=== PATIENT | female | born 1965 | race African-American/Black ===

== ENCOUNTER 2016-10-17 13:50 | Emergency (ER) | payer SELFPAY ==
[2016-10-17] MEDS ORDERED: Ketorolac 30 MG/ML SDV IM ONE (14:50)
--- NOTE | 2016-10-17 15:52 | EDM.PDOC ---
ED HPI GENERAL MEDICAL PROBLEM - General Chief Complaint: Back Pain or Injury Stated Complaint: BACK PAIN Time Seen by Provider: 10/17/16 14:40 Source of Information: Reports: Patient History Limitations: Reports: Language Barrier, Other (Daughter interprets as patient speaks Peruvian primarily. ) - History of Present Illness INITIAL COMMENTS - FREE TEXT/NARRATIVE: HISTORY AND PHYSICAL: History of present illness: [Patient comes to emergency room complaining of mid low back pain for the past 2 days. She has a history of low back pain that comes and goes. First episode of back pain occurred in 2012 and resolved completely. She had an episode of low back pain approximately 4 months ago which also resolved completely. She stated that the pain came on slowly 2 days ago, which she attributes to some stretching exercises she did then. She complains of pain and tightness to her low back with any movement. She feels most comfortable when she is perfectly still. She has been able to sleep well in spite of the pain. Pain is to both sides of her back equally. Denies radiation down her lower legs or upper back. She denies urinary frequency and dysuria. She's had no episodes of bowel or bladder incontinence or changes from her normal habits. Patient recently moved to the area from [place]. Peruvian is her primary language and daughter serves as park interpreter. Has a history of acid reflux and a questionable history of stomach ulcers for which she does not take any medication. She has been able to take ibuprofen in the past without difficulty. She does not yet have a local PCP.] Review of systems: As per history of present illness and below otherwise all systems reviewed and negative. Past medical history: As per history of present illness and as reviewed below otherwise noncontributory. Surgical history: As per history of present illness and as reviewed below otherwise noncontributory. Social history: No reported history of drug or alcohol abuse. Family history: As per history of present illness and as reviewed below otherwise noncontributory. Physical exam: HEENT: Atraumatic, normocephalic. Lungs: Clear to auscultation, breath sounds equal bilaterally. No wheezing, crackles or rales. Heart: S1S2, regular rate and rhythm. Abdomen: Soft, nondistended, nontender. No suprapubic tenderness, guarding masses or rebound. Pelvis: Stable nontender. Genitourinary: Deferred. Rectal: Deferred. Back: No bruising or erythema noted. No rashes or suspicious appearing lesions. She does not have any spinal tenderness with palpation over her cervical thoracic or lumbar spine. She is tender over the musculature of her lower lumbar and upper sacral area. She is full range of motion with forward and lateral flexion and extension. Pain to bilateral low back with rotation through the waist. Negative straight leg exam. Extremities: No cyanosis or edema to feet or lower legs. Atraumatic, negative for cords or calf pain. Neurovascular unremarkable. Neuro: Awake, alert, oriented. Patellar reflexes are 2+ and equal bilaterally. Motor and sensory unremarkable throughout. Exam nonfocal. Psych: Well groomed and pleasant. Makes good eye contact. Diagnostics: [UA] Therapeutics: [Toradol 30mg IM] Impression: [low back pain] Plan: [UA is clear. She has improved pain following Toradol injection. Recommend Tylenol alternating with ibuprofen as needed for discomfort. Heating pad as needed. Establish care with local PCP. Patient is in agreement with today's plan.] Definitive disposition and diagnosis as appropriate pending reevaluation and review of above. 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 ED EXAM,LOWER BACK PAIN/INJURY - Physical Exam Exam: See Below Course - Vital Signs Last Recorded V/S: Last Vital Signs Temp 97 F 10/17/16 13:55 Pulse 74 10/17/16 13:55 Resp 18 10/17/16 13:55 BP 162/94 H 10/17/16 13:55 Pulse Ox 99 10/17/16 13:55 - Orders/Labs/Meds Labs: Laboratory Tests 10/17/16 Range/Units 15:10 Urine Color YELLOW Urine Appearance CLEAR Urine pH 6.0 (5.0-8.0) Ur Specific [place] <= 1.005 (1.001-1.035) Urine Protein NEGATIVE (NEGATIVE) mg/dL Urine Glucose (UA) NEGATIVE (NEGATIVE) mg/dL Urine Ketones NEGATIVE (NEGATIVE) mg/dL Urine Occult Blood NEGATIVE (NEGATIVE) Urine Nitrite NEGATIVE (NEGATIVE) Urine Bilirubin NEGATIVE (NEGATIVE) Urine Urobilinogen 0.2 (<2.0) EU/dL Ur Leukocyte Esterase NEGATIVE (NEGATIVE) Urine RBC 0-1 (0-2/HPF) Urine WBC 0-1 (0-5/HPF) Ur Epithelial Cells RARE (NONE-FEW) Urine Bacteria RARE (NEGATIVE) Meds: Medications Discontinued Medications Generic Name Dose Route Start Last Admin Trade Name Freq PRN Reason Stop Dose Admin Ketorolac Tromethamine 30 mg 10/17/16 14:50 10/17/16 15:22 Toradol IM 10/17/16 14:51 30 mg ONETIME ONE Administration Departure - Departure Time of Disposition: 16:00 Disposition: Home, Self-Care 01 Condition: Good Clinical Impression: Low back pain Qualifiers: Chronicity: acute Back pain laterality: midline Sciatica presence: without sciatica Qualified Code(s): M54.5 - Low back pain - Discharge Information Instructions: Back Pain, Adult, [id number] Referrals: PCP,None [Primary Care Provider] - Forms: ED Department Discharge Additional Instructions: The following information is given to patients seen in the emergency department who are being discharged to home. This information is to outline your options for follow-up care. We provide all patients seen in our emergency department with a follow-up referral. The need for follow-up, as well as the timing and circumstances, are variable depending upon the specifics of your emergency department visit. If you don't have a primary care physician on staff, we will provide you with a referral. We always advise you to contact your personal physician following an emergency department visit to inform them of the circumstance of the visit and for follow-up with them and/or the need for any referrals to a consulting specialist. The emergency department will also refer you to a specialist when appropriate. This referral assures that you have the opportunity for follow-up care with a specialist. All of these measure are taken in an effort to provide you with optimal care, which includes your follow-up. Under all circumstances we always encourage you to contact your private physician who remains a resource for coordinating your care. When calling for follow-up care, please make the office aware that this follow-up is from your recent emergency room visit. If for any reason you are refused follow-up, please contact the [facility] emergency department at and asked to speak to the emergency department charge nurse. [facility] [address] [place] [id number] Follow-up with your primary care provider or at the clinic listed above in 48- 72 hours. Take ibuprofen 200 mg 3 tablets every 6-8 hours as needed for discomfort. Take omeprazole 20 mg twice daily while taking ibuprofen. Take ibuprofen with food. Continue with gentle daily stretching and continue normal daily activities. Return to ER as needed as discussed.
== END 2016-10-17 16:18 | disposition home or self-care (01) ==
LOC: MW.ED 13:50
DX: M54.5 Low back pain (principal); I10 Essential (primary) hypertension; Z90.710 Acquired absence of both cervix and uterus; Z79.899 Other long term (current) drug therapy
CPT/HCPCS: 81001; 96372; 99283; J1885

== ENCOUNTER 2018-06-15 16:35 | Emergency (ER) | payer SELFPAY ==
--- NOTE | 2018-06-15 17:01 | EDM.PDOC ---
ED HPI GENERAL MEDICAL PROBLEM - General Chief Complaint: General Stated Complaint: SPOKE TO NURSE Time Seen by Provider: 06/15/18 16:38 Source of Information: Reports: Patient History Limitations: Reports: No Limitations - History of Present Illness INITIAL COMMENTS - FREE TEXT/NARRATIVE: HISTORY AND PHYSICAL: History of present illness: Patient is a 53-year-old female who recently moved here from [place] and has concerns of insomnia, elevated blood pressure, chest pain related to bilateral breast pain. She states she has had this intermittent chest pain for approximately 6 months. She states the chest pain goes into bilateral breasts. Describes as "sharp She denies any nipple discharge, observing any masses, or dimpling. She has no history of any gynecological cancers. Patient reports that she has not been able to sleep well over the past 3 weeks. She states she is having difficulty falling asleep. She denies any excessive caffeine or stimulant use. She denies any fever, chills, shortness of breath or cough. Denies any abdominal pain, nausea, vomiting, diarrhea, constipation or dysuria. There is a language barrier, she declines the need for [facility] services. She has a family member at bedside who is translating. Review of systems: As per history of present illness and below otherwise all systems reviewed and negative. Past medical history: As per history of present illness and as reviewed below otherwise noncontributory. Surgical history: As per history of present illness and as reviewed below otherwise noncontributory. Social history: See social history for further information Family history: As per history of present illness and as reviewed below otherwise noncontributory. Physical exam: General: Well-developed and well-nourished 53-year-old female. Alert and oriented. Nontoxic appearing and in no acute distress. HEENT: Atraumatic, normocephalic, pupils equal and reactive bilaterally, negative for conjunctival pallor or scleral icterus, mucous membranes moist, TMs normal bilaterally, throat clear, neck supple, nontender, trachea midline. No drooling or trismus noted. No meningeal signs. No hot potato voice noted. Lungs: Clear to auscultation, breath sounds equal bilaterally, chest nontender. A breast exam was done with consent. She is aware of this prior to being performed. Breasts are symmetrical bilaterally, no dimpling or puckering noted. Unable to express any discharge. No masses noted with palpation. Heart: S1S2, regular rate and rhythm without overt murmur Abdomen: Soft, nondistended, nontender. Negative for masses or hepatosplenomegaly. Negative for costovertebral tenderness. Pelvis: Stable nontender. Genitourinary: Deferred. Rectal: Deferred. Skin: Intact, warm, dry. No lesions or rashes noted. Extremities: Atraumatic, negative for cords or calf pain. Neurovascular unremarkable. Neuro: Awake, alert, oriented. Cranial nerves II through XII unremarkable. Cerebellum unremarkable. Motor and sensory unremarkable throughout. Exam nonfocal. Notes: Lab work is unremarkable. Chest x-ray shows no evidence of infiltrate or pneumonia. EKG shows no significant findings. Her blood pressure has improved. Her main concern after reevaluation as the pain in her breasts. No findings on the manual exam. Encouraged her to follow-up with an TEEN COUNSELOR for further evaluation. Supportive care measures were reviewed and discussed. Voices understanding and is agreeable to plan of care. Denies any further questions or concerns at this time. Diagnostics: CBC, CMP, troponin, TSH, UA, chest x-ray Therapeutics: None Prescription: None Impression: Bilateral breast pain History of hypertension Plan: 1. Please take your routine medication as directed. 2. Tylenol and/or ibuprofen as needed for pain management. Please increase your oral fluids. 3. Follow-up with an TEEN COUNSELOR for further evaluation of the breast pain you have been having. See her primary care provider in the next 1-2 days. Return to the ED as needed and as discussed. Definitive disposition and diagnosis as appropriate pending reevaluation and review of above. 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 ED EXAM, GENERAL - Physical Exam Exam: See Below (See dictation) Course - Vital Signs Last Recorded V/S: Last Vital Signs Temp 97.1 F 06/15/18 16:43 Pulse 66 06/15/18 16:43 Resp 18 06/15/18 16:43 BP 182/91 H 06/15/18 16:43 Pulse Ox 96 06/15/18 16:43 - Orders/Labs/Meds Orders: Active Orders 24 hr Category Date Time Status EKG Documentation Completion [RC] STAT Care 06/15/18 17:02 Active Labs: Laboratory Tests 06/15/18 06/15/18 06/15/18 Range/Units 17:20 17:20 17:41 WBC 4.41 (4.0-11.0) K/uL RBC 4.41 (4.30-5.90) M/uL Hgb 12.6 (12.0-16.0) g/dL Hct 38.0 (36.0-46.0) % MCV 86.2 (80.0-98.0) fL MCH 28.6 (27.0-32.0) pg MCHC 33.2 (31.0-37.0) g/dL RDW Std Deviation 41.5 (28.0-62.0) fl RDW Coeff of Charity 13 (11.0-15.0) % Plt Count 204 (150-400) K/uL MPV 10.40 (7.40-12.00) fL Neut % (Auto) 43.0 L (48.0-80.0) % Lymph % (Auto) 40.1 H (16.0-40.0) % Vilas % (Auto) 12.2 (0.0-15.0) % Eos % (Auto) 4.5 (0.0-7.0) % Baso % (Auto) 0.2 (0.0-1.5) % Neut # (Auto) 1.9 (1.4-5.7) K/uL Lymph # (Auto) 1.8 (0.6-2.4) K/uL [place] # (Auto) 0.5 (0.0-0.8) K/uL Eos # (Auto) 0.2 (0.0-0.7) K/uL Baso # (Auto) 0.0 (0.0-0.1) K/uL Nucleated RBC % 0.0 /100WBC Nucleated RBCs # 0 K/uL Sodium 135 L (136-145) mmol/L Potassium 3.7 (3.5-5.1) mmol/L Chloride 100 (98-107) mmol/L Carbon Dioxide 29.3 (21.0-32.0) mmol/L BUN 21 H (7.0-18.0) mg/dL Creatinine 0.8 (0.6-1.0) mg/dL Est Cr Clr Drug Dosing TNP Estimated GFR (MDRD) > 60.0 ml/min Glucose 117 H (74-106) mg/dL Calcium 9.8 (8.5-10.1) mg/dL Total Bilirubin 0.3 (0.2-1.0) mg/dL AST 19 (15-37) IU/L ALT 20 (14-63) IU/L Alkaline Phosphatase 132 H (46-116) U/L Troponin I < 0.050 (0.000-0.056) ng/mL Total Protein 8.2 (6.4-8.2) g/dL Albumin 3.6 (3.4-5.0) g/dL Globulin 4.6 H (2.6-4.0) g/dL Albumin/Globulin Ratio 0.8 L (0.9-1.6) TSH 3rd Generation 2.61 (0.36-3.74) uIU/mL Urine Color YELLOW Urine Appearance CLEAR Urine pH 6.5 (5.0-8.0) Ur Specific [place] <= 1.005 (1.001-1.035) Urine Protein NEGATIVE (NEGATIVE) mg/dL Urine Glucose (UA) NEGATIVE (NEGATIVE) mg/dL Urine Ketones NEGATIVE (NEGATIVE) mg/dL Urine Occult Blood NEGATIVE (NEGATIVE) Urine Nitrite NEGATIVE (NEGATIVE) Urine Bilirubin NEGATIVE (NEGATIVE) Urine Urobilinogen 0.2 (<2.0) EU/dL Ur Leukocyte Esterase NEGATIVE (NEGATIVE) Departure - Departure Time of Disposition: 18:22 Disposition: Home, Self-Care 01 Clinical Impression: Pain of both breasts, History of high blood pressure - Discharge Information Instructions: Breast Tenderness, Nonspecific Chest Pain Referrals: PCP,None [Primary Care Provider] - Forms: ED Department Discharge Additional Instructions: The following information is given to patients seen in the emergency department who are being discharged to home. This information is to outline your options for follow-up care. We provide all patients seen in our emergency department with a follow-up referral. The need for follow-up, as well as the timing and circumstances, are variable depending upon the specifics of your emergency department visit. If you don't have a primary care physician on staff, we will provide you with a referral. We always advise you to contact your personal physician following an emergency department visit to inform them of the circumstance of the visit and for follow-up with them and/or the need for any referrals to a consulting specialist. The emergency department will also refer you to a specialist when appropriate. This referral assures that you have the opportunity for follow-up care with a specialist. All of these measure are taken in an effort to provide you with optimal care, which includes your follow-up. Under all circumstances we always encourage you to contact your private physician who remains a resource for coordinating your care. When calling for follow-up care, please make the office aware that this follow-up is from your recent emergency room visit. If for any reason you are refused follow-up, please contact the [facility] Emergency Department at and asked to speak to the emergency department charge nurse. [facility] [address] [place] [id number] [facility] [address] [place] [phone] [facility] [address] [place] [address] 1. Please take your routine medication as directed. 2. Tylenol and/or ibuprofen as needed for pain management. Please increase your oral fluids. 3. Follow-up with an TEEN COUNSELOR for further evaluation of the breast pain you have been having. See her primary care provider in the next 1-2 days. Return to the ED as needed and as discussed. - My Orders Last 24 Hours: My Active Orders 06/15/18 17:02 EKG Documentation Completion [RC] STAT - Assessment/Plan Last 24 Hours: My Active Orders 06/15/18 17:02 EKG Documentation Completion [RC] STAT
--- NOTE | 2018-06-15 17:41 | CR ---
INDICATION: Chest pain TECHNIQUE: Single view chest. FINDINGS: Low lung volumes. Cardiac silhouette is prominent. No acute airspace or interstitial process. No effusion or pneumothorax. IMPRESSION: Negative chest. Dictated by Irena Hutchinson MD @ Jun 15 2018 5:38PM Signed by Dr. Irena Hutchinson @ Jun 15 2018 5:39PM
[2018-06-15 18:05] LABS: CHLORIDE,CL 100 mmol/L (98-107); SODIUM,NA 135 mmol/L (136-145)
[2018-06-15 19:08] VITALS: BP 162/88
== END 2018-06-15 19:05 | disposition home or self-care (01) ==
LOC: MW.ED 16:35
DX: N64.4 Mastodynia (principal); I10 Essential (primary) hypertension; Z79.899 Other long term (current) drug therapy
CPT/HCPCS: 36415; 71045; 71045-26; 80053; 81003; 84443; 84484; 85025; 93005; 99283-25